=== PATIENT | male | born 1980 ===

== ENCOUNTER 2017-09-25 10:06 | Day surgery (SDC) | payer OTHER ==
--- NOTE | 2017-09-11 06:52 | HP ---
CC: Dr. Lauren * ADMITTING HISTORY AND PHYSICAL: DATE OF ADMISSION: 09/25/17 ADMITTING DIAGNOSIS: Elective sterilization. PLANNED PROCEDURE: Bilateral vasectomy with intravenous sedation. SURGEON: Dr. Moreira. HISTORY OF PRESENT ILLNESS: Jacky Leos is a 36-year-old gentleman who was evaluated because he is interested in having a vasectomy performed and sterilization. The procedure is to be done with intravenous sedation because of the significant comfort that he was having during the initial office evaluation and I think an office vasectomy would be too painful for him due to the scrotal anatomy. PAST MEDICAL HISTORY: Significant for hypertension. PAST SURGICAL HISTORY: Significant for wisdom teeth extraction. MEDICATIONS ON ADMISSION: Include lisinopril 20 mg a day. ALLERGIES: No known drug allergies. SOCIAL HISTORY: Smoking history, he is a nonsmoker. REVIEW OF SYSTEMS: He is otherwise in excellent health. There is no history of diabetes mellitus or any other major systemic illness. PHYSICAL EXAMINATION GENERAL: Reveals a pleasant healthy appearing young gentleman. VITAL SIGNS: Blood pressure is 140/90, pulse 105 per minute and regular, temperature 96.5, oxygen saturation 99% on room air. LUNGS: Clear bilaterally. CARDIOVASCULAR: Regular rate and rhythm. S1, S2. ABDOMEN: Soft without masses. GENITALIA: Testicles are descended bilaterally. It is very difficult to do a proper scrotal exam due to tight scrotal skin, but I am able to examine the testicles and rule out any testicular masses. The patient was quite uncomfortable during the scrotal exam, which would make an office vasectomy much more difficult for him. IMPRESSION AND PLAN: I discussed the procedure of vasectomy in detail with the patient including possible risks of bleeding, infection, failure of vasectomy, and persistent testicular pain. I recommended doing a vasectomy using intravenous sedation and he is scheduled for the same. Plan is bilateral vasectomy with intravenous sedation. [id number] #: [id number] [facility] HEALTH SERVICESNatalie
[~2017-09-25 10:06] MED LIST: Buffered Lidocaine 0.9% SYRIN* 5 ML/SYR SYRINGE INTRADERM ONE; Sodium Citrate/Citric Acid* 15 ML UDC PO ONE
[2017-09-25] MEDS ORDERED: cefTRIAXone(*) 1 GM ADVAN/BAG ONE ×2 (10:09→10:11)
[2017-09-25] MEDS ORDERED: Sodium Citrate/Citric Acid* 15 ML UDC ONE (10:09)
[2017-09-25] MEDS ORDERED: Midazolam* 1 MG/ML 2 ML VIAL (2 MG) ONE ×2 (10:18→11:01)
[2017-09-25] MEDS ORDERED: Famotidine IV* 10 MG/ML 2 ML (20 mg) ONE (10:18)
[2017-09-25] MEDS ORDERED: fentaNYL* 50 MCG/ML 2 ML VIAL (100 MCG VIAL) ONE (10:19)
[2017-09-25] MEDS ORDERED: Lidocaine 1%* 5 ML VIAL ONE (10:54)
[2017-09-25] MEDS ORDERED: Propofol* 10 MG/ML 20 ML BTL IV PUSH ONE ×2 (11:03→11:06)
[2017-09-25] MEDS ORDERED: Dexamethasone IV* 4 MG/ML 1 ML (4 MG) ONE (11:03)
[2017-09-25] MEDS ORDERED: Ketorolac INJ* 30 MG/ML 1 ML VIAL ONE (11:03)
[2017-09-25] MEDS ORDERED: diPHENhydraMINE IV* 50 MG/ML 1 ml VIAL (BENADRYL) ONE (11:03)
[2017-09-25] MEDS ORDERED: Lidocaine 2% PF * 5 ML VIAL ONE (11:06)
[2017-09-25] MEDS ORDERED: Acetaminophen TAB* 325 MG PO PRN (11:20)
[2017-09-25] MEDS ORDERED: Ondansetron ODT TAB* 4 MG PO PRN (11:20)
[2017-09-25] MEDS ORDERED: HYDROcodone/ACETAMIN 5-325 MG* 1 TAB PO PRN ×2 (11:20)
[2017-09-25] MEDS ORDERED: DiMENhydriNATE IV* 50 MG/ML VIAL IV PUSH PRN (11:20)
[2017-09-25] MEDS ORDERED: fentaNYL* 50 MCG/ML 2 ML VIAL (100 MCG VIAL) IV PRN (11:20)
[2017-09-25] MEDS ORDERED: Naloxone* 0.4 MG/ML 1 ML VIAL IV PRN (11:20)
[2017-09-25] MEDS ORDERED: PROCHLORPERAZINE INJ 5 MG/ML 2 ML VIAL IV PRN (11:20)
[2017-09-25 12:26] VITALS: BP 113/79
--- NOTE | 2017-09-26 05:23 | OP ---
DATE OF OPERATION: 09/25/17 - [facility] DATE OF : 84. SURGEON: Jose Guadalupe Moreira MD. ANESTHESIOLOGIST: Dr. Sheehan. ANESTHESIA: Local plus intravenous sedation. PRE-OP DIAGNOSIS: Elective sterilization. POST-OP DIAGNOSIS: Elective sterilization. OPERATIVE PROCEDURE: Bilateral vasectomy. COMPLICATIONS: None. BLOOD LOSS: Minimal. SPECIMEN: Right and left vas deferens. INDICATIONS: Jacky Oneal is a 36-year-old gentleman, who desires vasectomy. After examining him in the office, he and I decided that it would be best to do this in the operating room using intravenous sedation and he is now being brought in for the same. POSTOPERATIVE CONDITION: Stable. DESCRIPTION OF PROCEDURE: After induction of intravenous sedation, external genitalia were prepped and draped in the sterile fashion. A small transverse incision was made in the left side of the scrotum after infiltrating the skin and subcutaneous tissue with 1% lidocaine. The vas deferens was identified and was pulled out through the incision. A small segment of the vas was excised and ends were controlled using Hemoclips. Once the hemoclips had been applied to both ends, the ends were allowed to drop back into their normal anatomic position and the skin was approximated using interrupted sutures of 4-0 chromic. An identical procedure was carried out on the right side. Once again , a small segment of the vas was excised and the ends were controlled using Hemoclips. All sponge and needle counts were correct. Dry sterile dressings were applied. The patient tolerated the procedure satisfactorily and was transferred back to the recovery area in stable condition. [id number] #: [id number] [facility]
== END 2017-09-25 12:45 | disposition home or self-care (01) ==
LOC: OR 10:06
PROVIDERS: ATTEND Urology
DX: Z30.2 Encounter for sterilization (principal); I10 Essential (primary) hypertension; Z87.891 Personal history of nicotine dependence; F41.9 Anxiety disorder, unspecified; Z68.34 Body mass index [BMI] 34.0-34.9, adult
CPT/HCPCS: 88302; A9270-GY; J0696; J1100; J1200; J1885; J2250; J2704; J3010